=== PATIENT | female | born 1980 | race Caucasian/White ===

== ENCOUNTER 2020-01-03 11:41 | Outpatient (CLI) | payer OTHER | END 2020-01-03 12:17 | disposition home or self-care (01) | LOC: NST 11:41 | DX: Z34.83 Encounter for supervision of other normal pregnancy, third trimester (principal) ==

== ENCOUNTER 2020-01-10 10:05 | Outpatient (CLI) | payer OTHER | END 2020-01-10 11:00 | disposition home or self-care (01) | LOC: NST 10:05 | DX: Z34.83 Encounter for supervision of other normal pregnancy, third trimester (principal) ==

== ENCOUNTER 2020-01-17 09:36 | Outpatient (CLI) | payer OTHER | END 2020-01-17 10:29 | disposition home or self-care (01) | LOC: NST 09:36 | DX: Z34.83 Encounter for supervision of other normal pregnancy, third trimester (principal) ==

== ENCOUNTER 2020-01-18 15:00 | Inpatient (IN) | payer OTHER ==
[~2020-01-18] VITALS: Ht 162.6 cm; Wt 61.2 kg
[2020-01-26] MEDS ORDERED: LEVOTHYROXINE25 MCG PO (05:40)
[2020-01-26] MEDS ORDERED: PRENATAL CAPLE1 EAC1 PO (05:40)
[2020-01-26] MEDS ORDERED: URSO250 MG PO (05:41)
[2020-01-27] MEDS ORDERED: LEVO-T50 MCG PO (14:37)
== END 2020-01-28 11:40 | disposition home or self-care (01) | DRG 807 ==
LOC: OB/GYN 01-24 15:00 → LDR 01-26 05:07 → OB/GYN 01-26 14:11
PROVIDERS: ADMIT Obstetrics & Gynecology
PROC: 10E0XZZ Delivery of Products of Conception, External Approach (ICD-10-PCS; principal; 2020-01-26)
PROC: 0HQ9XZZ Repair Perineum Skin, External Approach (ICD-10-PCS; 2020-01-26)
PROC: 3E033VJ Introduction of Other Hormone into Peripheral Vein, Percutaneous Approach (ICD-10-PCS; 2020-01-26)
PROC: 4A1HXCZ Monitoring of Products of Conception, Cardiac Rate, External Approach (ICD-10-PCS; 2020-01-26)
DX: O70.0 First degree perineal laceration during delivery (principal); Z37.0 Single live birth; O99.824 Streptococcus B carrier state complicating childbirth; Z3A.37 37 weeks gestation of pregnancy

== ENCOUNTER 2020-01-24 09:48 | Outpatient (CLI) | payer OTHER | END 2020-01-24 10:41 | disposition home or self-care (01) | LOC: NST 09:48 | DX: Z34.83 Encounter for supervision of other normal pregnancy, third trimester (principal) ==